=== PATIENT | female | born 1960 | race Caucasian/White ===

== ENCOUNTER 2019-09-19 19:55 | Emergency (ER) | payer MEDICARE, MEDICAID ==
[~2019-09-19] VITALS: Ht 149.9 cm; Wt 92.0 kg
[2019-09-19] MEDS ORDERED: PRAVASTATIN80 MG PO (20:50)
[2019-09-19] MEDS ORDERED: NEURONTIN800 MG PO (20:51)
[2019-09-19] MEDS ORDERED: JANUVIA100 MG PO (20:52)
[2019-09-19] MEDS ORDERED: PIOGLITAZONE HC45 MG PO (20:52)
[2019-09-19] MEDS ORDERED: NORVASC5 M1 PO (20:56)
[2019-09-19] MEDS ORDERED: GLIPIZIDE ER5 M1 PO (20:58)
[2019-09-19] MEDS ORDERED: FARXIGA10 MG PO (20:59)
[2019-09-19 21:01] LABS: HEMATOCRIT 45.6 % (37.0-47.0); HEMOGLOBIN 14.6 g/dl (12.0-16.0); IMMATURE GRANULOCYTES 0.8 % (0.0-5.0); MEAN CELL VOLUME 86.7 fL CALC (80.0-100.0); MEAN CORPUSCULAR HGB 27.8 pG CALC (26.0-32.0); NEUT# 8.9 thou/uL (2.00-7.15); RED BLOOD COUNT 5.26 mill/uL (4.20-5.60); RED CELL DISTRI WIDTH 13.3 % (11.5-15.5)
[2019-09-19] MEDS ORDERED: LOPID600 MG PO (21:02)
[2019-09-19] MEDS ORDERED: BUMETANIDE2 MG PO (21:03)
[2019-09-19] MEDS ORDERED: LEVOTHYROXIN125 MC1 PO (21:03)
[2019-09-19] MEDS ORDERED: METHOCARBAMOL500 MG PO (21:04)
[2019-09-19] MEDS ORDERED: LISINOPRIL30 MG PO (21:04)
[2019-09-19] MEDS ORDERED: ASPIRIN EC LOW81 MG PO (21:05)
[2019-09-19 21:14] LABS: ALBUMIN 4.4 g/dL (3.2-5.0); BILIRUBIN, TOTAL 0.5 mg/dL (0.0-1.4); CREATININE 1.3 mg/dL (0.5-1.0); POTASSIUM 3.8 mmol/l (3.5-5.1); TOTAL PROTEIN 7.8 g/dL (6.3-8.2)
[2019-09-19 21:16] LABS: PROTHROMBIN TIME 10.2 SECONDS (9.0-12.5)
[2019-09-19 22:43] LABS: URINE BILIRUBIN - DIPSTICK NEGATIVE (NEGATIVE); URINE BLOOD DIPSTICK NEGATIVE (NEGATIVE); URINE COLOR YELLOW; URINE GLUCOSE - DIPSTICK >=1000 mg/dL (NEGATIVE); URINE KETONE NEGATIVE (NEGATIVE); URINE LEUK ESTERASE TRACE (NEGATIVE); URINE NITRITE - DIPSTICK NEGATIVE (Negative); URINE PROTEIN - DIPSTICK NEGATIVE (NEG-TRACE); URINE UROBILINOGEN - DIPSTICK 0.2 E.U./dL (0.2)
[2019-09-20 04:31] VITALS: BP 155/93
== END 2019-09-20 01:21 | disposition left against medical advice (07) ==
LOC: ED 19:55
PROVIDERS: Emergency Medicine
DX: G45.9 Transient cerebral ischemic attack, unspecified (principal); E11.9 Type 2 diabetes mellitus without complications; I10 Essential (primary) hypertension; I67.1 Cerebral aneurysm, nonruptured; Z79.84 Long term (current) use of oral hypoglycemic drugs; Z91.19 Patient's noncompliance with other medical treatment and regimen

== ENCOUNTER 2019-12-26 10:54 | Observation (INO) | payer MEDICARE, MEDICAID ==
[~2019-12-26] VITALS: Ht 147.3 cm; Wt 90.7 kg
[~2019-12-26 10:54] MED LIST: ASPIRIN EC LOW81 MG PO; BUMETANIDE2 MG PO; FARXIGA10 MG PO; GLIPIZIDE ER5 M1 PO; JANUVIA100 MG PO; LEVOTHYROXIN125 MC1 PO; LISINOPRIL30 MG PO; LOPID600 MG PO; METHOCARBAMOL500 MG PO; NEURONTIN800 MG PO; NORVASC5 M1 PO; PIOGLITAZONE HC45 MG PO; PRAVASTATIN80 MG PO
--- NOTE | 2019-12-26 11:05 | NUR ---
PT TO RM 12 VIA W/C. ATTACHED TO [employer].
[2019-12-26 11:56] LABS: HEMATOCRIT 41.2 % (37.0-47.0); IMMATURE GRANULOCYTES 0.7 % (0.0-5.0); MEAN CORPUSCULAR HGB 28.1 pG CALC (26.0-32.0); MEAN CORPUSCULAR HGB CONC 31.6 g/dL CAL (32.0-36.0); NEUT# 7.31 thou/uL (2.00-7.15); RED BLOOD COUNT 4.63 mill/uL (4.20-5.60); RED CELL DISTRI WIDTH 13.4 % (11.5-15.5)
--- NOTE | 2019-12-26 12:10 | NUR ---
PT RESTING NO NEW COMPLAINTS, VISITOR REMAINS AT BEDSIDE NO S/S OF DISTRESS.
[2019-12-26 12:13] LABS: ALBUMIN 3.7 g/dL (3.2-5.0); ALKALINE PHOSPHATASE 60 u/l (38-126); ANION GAP 13 (6-22 (CALC)); BILIRUBIN, TOTAL 0.4 mg/dL (0.0-1.4); BUN 32 mg/dL (8-23); BUN/CREATININE RATIO 28 (12-20 (CALC)); CARBON DIOXIDE 24 mmol/l (22-30); CHLORIDE 104 mmol/l (95-108); CREATININE 1.1 mg/dL (0.5-1.0); GFR 50 ML/MIN (>=60 (CALC)); GFR FOR AFR.AMER. > 60 ML/MIN (>=60 (CALC)); POTASSIUM 4.4 mmol/l (3.5-5.1); SGOT/AST 23 u/l (9-36); SODIUM 137 mmol/l (137-146); TOTAL PROTEIN 6.7 g/dL (6.3-8.2)
--- NOTE | 2019-12-26 13:10 | NUR ---
AMUBLATED TO BR EARLIER WITH MIN ASSIST, PT STATES CURRENT AMBUALTORY GAIT IS HER NORM. NO S/S OF DISTRESS URINE SPECIMEN SENT
--- NOTE | 2019-12-26 14:10 | NUR ---
PT RESTING NO S/S OF DISTRESS, CALL [facility]
--- NOTE | 2019-12-26 14:13 | NUR ---
INTO SEE PT AWARE OF PLANNED ADMISSION
--- NOTE | 2019-12-26 15:10 | NUR ---
AWARE OF HYPERTENSION NEW ORDERS REC'D.
--- NOTE | 2019-12-26 15:40 | NUR ---
PT RESTING AWAITING ADMISSION UPSTAIRS MOM REMAINS AT BEDSIDE
[2019-12-26] MEDS ORDERED: KLOR-CON M2020 MEQ PO (15:44)
[2019-12-26] MEDS ORDERED: TRULICITY1.5 MG/0.5 SC (15:47)
[2019-12-26] MEDS ORDERED: PROAIR HFA IN (15:48)
[2019-12-26] MEDS ORDERED: METOPROLOL TAR100 MG PO (15:48)
--- NOTE | 2019-12-26 16:25 | NUR ---
PT RESTIJNG AWARE OF DELAY FOR BED PLACEMENT, OFFERS NO NEW COMPLAINTS, CALL [facility]EN WITHINR EACH
--- NOTE | 2019-12-26 17:08 | NUR ---
REPORT CALLED TO NATALIA
--- NOTE | 2019-12-26 17:20 | NUR ---
PT ARRIVED TO THE FLOOR VIA WC ACCOMPANIED BY ED STAFF. PT AMBULATED FROM STRETCHER TO BED, GATE STEADY. ASSESSMENT COMPLETED. PT IS ALERT AND ORIENTED. RESPIRATIONS EVEN AND UNLABORED ON RA. LUNGS SOUND CLEAR. PEDAL PULSES ARE WEAK. PT DENIES LUCIO PAIN OR DISCOMFORT AT THIS TIME. PT ORIENTED TO ROOM ANND CALL [facility]EN SYSTEM. PT DENIES ANY NEEDS AT THIS TIME. SAFETY PRECAUTIONS IN PLACE. WILL CONTINUE TO MONITOR.
--- NOTE | 2019-12-26 17:25 | NUR ---
PT TRANSPORTED TO MED SURG VIA W/C ON TELE, ALL BELONGINGS SENT WITH PT.
[2019-12-26 19:00] VITALS: BP 157/74
--- NOTE | 2019-12-26 20:00 | NUR ---
PATIENT IS ALERT AND ORIENTED X3. ABLE TO MAKE NEEDS KNOW. RESPIRATIONS EASY ON ROOM AIR. SKIN WARM AND DRY. DENIES PAIN. ABLE TO MOVE ALL EXTREMITIES WITH EQUAL STRENGTH BILATERALLY. #18 R AC S/L WITH DRESSING CLEAN DRY AND INTACT. ON TELEMETRY ST. BED IN LOW POSITION CALL LIGHT WITHIN REACH.
[2019-12-27] VITALS: BP 158/81
--- NOTE | 2019-12-27 | NUR ---
PATIENT RESTING IN BED WITH EYES CLOSED. RESPIRATIONS EASY. NOT ACUTE DISTRESS NOTED. BED IN LOW POSITION. CALL LIGHT WITHIN REACH.
[2019-12-27 04:00] VITALS: BP 123/74
--- NOTE | 2019-12-27 04:00 | NUR ---
PATIENT RESTING QUIETLY IN BED. EYES CLOSED. RESPIRATIONS EASY ON ROOM AIR. NO ACUTE DISTRESS NOTED. BED IN LOW POSITION. CALL LIGHT WITHIN REACH.
[2019-12-27 05:19] LABS: CHOLESTEROL HDL RATIO 7.3 (<4.4 (CALC))
--- NOTE | 2019-12-27 07:00 | NUR ---
REPORT RECEIVED FROM RIVERA DAWKINS. PT RESTING IN BED, NO S/S OF DISTRESS AT THIS TIME. SAFETY PRECAUTIONS IN PLACE. WILL CONTINUE TO MONITOR.
[2019-12-27 07:24] VITALS: BP 132/74
--- NOTE | 2019-12-27 07:30 | NUR ---
PT RESTING IN BED ALERT AND ORIENTED. VS OBTAINED AND ASSESSMENT COMPLETED. RESPIRATIONS EVEN AND UNLABORED ON RA. LUNGS CLEAR. PEDAL PULSES ARE STRONG. PT DENIES ANY PAIN OR DISCOMFORT AT THIS TIME. #[id number] PATNENT AND APPEARS. HEALTHY. SAFETY PRECAUTIONS IN PLACE. WILL CONTINUE TO MONITOR.
--- NOTE | 2019-12-27 07:32 | NUR ---
Physical Medicine This patient is screened for rehab interventions and she would benefit form speech therapy consult to address any cognitive and aphasia symptoms that continue if medical agrees
--- NOTE | 2019-12-27 11:25 | NUR ---
MD AT BEDSIDE, DISCUSSING PLAN OF CARE.
[2019-12-27 12:07] VITALS: BP 133/75
--- NOTE | 2019-12-27 15:10 | NUR ---
PT PROVIDED WITH DISCHARGE EDUCATION. -
--- NOTE | 2019-12-27 15:43 | NUR ---
Discharge instructions given. Patient verbalizes understanding of same. Discharged in stable condition via Wheelchair to Home with staff. All belongings sent with pt.
== END 2019-12-27 15:44 | disposition home or self-care (01) ==
LOC: ED 10:54 → ED-I 14:11 → ED 14:28 → MS2 14:29
PROVIDERS: Family Medicine; ADMIT Internal Medicine; ATTEND Internal Medicine
DX: G45.9 Transient cerebral ischemic attack, unspecified (principal); I10 Essential (primary) hypertension; E11.9 Type 2 diabetes mellitus without complications; E78.5 Hyperlipidemia, unspecified; Z86.79 Personal history of other diseases of the circulatory system; Z20.828 Contact with and (suspected) exposure to other viral communicable diseases
CPT/HCPCS: G0378